=== PATIENT | male | born 1990 | race Caucasian/White ===

== ENCOUNTER 2021-03-21 19:11 | Emergency (ER) | payer SELFPAY ==
[~2021-03-21] VITALS: Ht 182.9 cm; Wt 88.9 kg
[2021-03-21] MEDS ORDERED: CLINDAMYCIN HC300 MG PO (20:04)
== END 2021-03-21 20:16 | disposition home or self-care (01) ==
LOC: ED 19:11
DX: K04.7 Periapical abscess without sinus (principal); K02.9 Dental caries, unspecified
CPT/HCPCS: 99282